=== PATIENT | female | born 1980 | race African-American/Black ===

== ENCOUNTER 2017-11-04 09:34 | Emergency (ER) | payer MEDICAID, OTHER ==
[~2017-11-04] VITALS: Ht 167.6 cm; Wt 84.0 kg
[2017-11-04] MEDS ORDERED: KETOROLAC 60MG/2ML VIAL IM ONE (10:45)
[2017-11-04 11:16] VITALS: BP 105/78
== END 2017-11-04 11:54 | disposition home or self-care (01) ==
LOC: ER 09:40
DX: M25.562 Pain in left knee (principal); F17.210 Nicotine dependence, cigarettes, uncomplicated; F12.90 Cannabis use, unspecified, uncomplicated
CPT/HCPCS: 73562; 81025; 99284; J1885; Z7610